=== PATIENT | male | born 1950 | race Caucasian/White ===

== ENCOUNTER → 2020-02-17 | Outpatient (CLI) | payer OTHER ==
[~2020-02-17] MED LIST: FLEXERIL10 MG PO; HYDROCODONE BIT1 T11 PO; KEFLEX500 M1 PO; LAMICTAL200 MG PO; LOMOTIL 0.025 M1 TA1 PO; MOTRIN600 MG PO; MOTRIN800 MG PO; NAPROSYN500 MG PO; TEGRETOL PO; TEGRETOL-XR 40400 MG PO; TEGRETOL-XR400 MG PO; TOPAMAX15 MG PO; TOPAMAX200 MG PO; TYLENOL500 MG PO; VICODIN 5/500 505 MG PO; ZOLOFT100 MG PO
== END | disposition home or self-care (01) ==
LOC: US 10:00
PROVIDERS: ATTEND Nurse Practitioner Family
DX: Z72.0 Tobacco use (principal)

== ENCOUNTER → 2020-08-16 | Outpatient (CLI) | payer OTHER | END | disposition home or self-care (01) | LOC: CT 08-09 11:00 | PROVIDERS: ATTEND Nurse Practitioner Family | DX: J43.9 Emphysema, unspecified (principal); J98.11 Atelectasis; J98.4 Other disorders of lung; R91.8 Other nonspecific abnormal finding of lung field ==

== ENCOUNTER → 2020-08-29 | Outpatient (CLI) | payer OTHER | END | disposition home or self-care (01) | LOC: CARD 07:24 | PROVIDERS: ATTEND Nurse Practitioner Family | DX: R01.1 Cardiac murmur, unspecified (principal) ==

== ENCOUNTER → 2020-12-19 | Outpatient (CLI) | payer OTHER ==
[~2020-12-19] MED LIST changes: +STIOLTO RESPIMAT4 GM NAS; -TOPAMAX15 MG PO; +VIT D PO
== END | disposition home or self-care (01) ==
LOC: CARD 01:37
PROVIDERS: ATTEND Internal Medicine Cardiovascular Disease
DX: I20.8 Other forms of angina pectoris (principal); R06.02 Shortness of breath

== ENCOUNTER → 2021-03-26 | Outpatient (CLI) | payer OTHER ==
[~2021-03-26] MED LIST changes: +LEVOFLOXACIN500 MG PO; +PREDNISONE10 MG PO
== END | disposition home or self-care (01) ==
LOC: LAB 08:37
PROVIDERS: ATTEND Nurse Practitioner Family
DX: G43.819 Other migraine, intractable, without status migrainosus (principal)

== ENCOUNTER 2021-04-10 11:14 | Inpatient (IN) | payer OTHER ==
[2021-04-10] VITALS (7 sets, daily range): BP systolic 127–155; BP diastolic 78–98
[~2021-04-10] VITALS: Ht 160 cm; Wt 45.0 kg
[~2021-04-10 11:14] MED LIST changes: -LEVOFLOXACIN500 MG PO; -PREDNISONE10 MG PO
[2021-04-10 11:49] LABS: BASO # 0.1 10*3/uL (0.0-0.1); BASO % 0.6 % (0.0-1.0); EOS # 0.1 10*3/uL (0.0-0.4); EOS % 0.6 % (1.0-4.0); HEMATOCRIT 40.6 % (42.0-52.0); LYMPH # 2.4 10*3/uL (1.3-4.4); LYMPH % 26.9 % (27.0-41.0); MEAN CORPUSCULAR HGB 31.2 pg (27.0-31.0); MEAN CORPUSCULAR HGB CONC 31.5 g/dl (33.0-37.0); MEAN PLATELET VOLUME 8.5 fl (9.6-12.3); MONO # 0.6 10*3/uL (0.1-1.0); MONO % 6.9 % (3.0-9.0); NEUT # 5.8 10*3/uL (2.3-7.9); NEUT % 64.6 % (47.0-73.0); PLATELET COUNT AUTOMATED 281 10*3/uL (130-400); RED CELL DISTRI WIDTH 13.2 % (0-14.5)
[2021-04-10 12:00] LABS: ACT PARTIAL THROMBO TIME 29.1 SECONDS (20.0-32.1)
[2021-04-10 12:06] LABS: ALBUMIN 3.1 gm/dl (3.1-4.5); ALKALINE PHOSPHATASE 103 U/L (45-117); BUN 15 mg/dl (7-24); CHLORIDE 106 mmol/L (98-107); CREATININE 0.69 mg/dL (0.70-1.30); POTASSIUM 3.9 mmol/L (3.5-5.1); SGOT/AST 14 IU/L (3-35); SGPT/ALT 24 U/L (12-78); SODIUM 140 mmol/L (136-145); TOTAL PROTEIN 7.2 gm/dL (6.4-8.2)
[2021-04-10 12:16] LABS: TROPONIN I < 0.015 ng/ml (<0.045)
[2021-04-10] MEDS ORDERED: TOPAMAX200 MG PO (21:09)
[2021-04-11] VITALS: BP 138/83
[2021-04-11 06:31] LABS: ACT PARTIAL THROMBO TIME 29.5 SECONDS (20.0-32.1)
[2021-04-11 06:42] LABS: BUN 11 mg/dl (7-24); CHLORIDE 104 mmol/L (98-107); CHOLESTEROL 155 mg/dL (<200); CREATININE 0.71 mg/dL (0.70-1.30); SGOT/AST 11 IU/L (3-35); SGPT/ALT 19 U/L (12-78); SODIUM 138 mmol/L (136-145); TRIGLYCERIDES 88 mg/dl (<150)
[2021-04-11 06:48] LABS: BASO % 0.1 % (0.0-1.0); HEMATOCRIT 39.1 % (42.0-52.0); LYMPH # 1.1 10*3/uL (1.3-4.4); LYMPH % 14.9 % (27.0-41.0); MEAN CORPUSCULAR HGB 31.1 pg (27.0-31.0); MEAN CORPUSCULAR HGB CONC 31.7 g/dl (33.0-37.0); MEAN PLATELET VOLUME 9.1 fl (9.6-12.3); MONO # 0.1 10*3/uL (0.1-1.0); MONO % 1.9 % (3.0-9.0); NEUT # 6.1 10*3/uL (2.3-7.9); NEUT % 82.7 % (47.0-73.0); PLATELET COUNT AUTOMATED 307 10*3/uL (130-400); RED BLOOD COUNT 3.99 10*6/uL (4.50-5.90); RED CELL DISTRI WIDTH 13.1 % (0-14.5); WHITE BLOOD COUNT 7.4 10*3/uL (4.8-10.8)
[2021-04-11 06:53] LABS: ALKALINE PHOSPHATASE 92 U/L (45-117); FREE T4 0.75 ng/dl (0.76-1.46); LDL CHOLESTEROL 69 mg/dL (9-159)
[2021-04-11 08:00] VITALS: BP 135/81
[2021-04-11] MEDS ORDERED: PREDNISONE10 MG PO (11:17)
[2021-04-11] MEDS ORDERED: LEVOFLOXACIN500 MG PO (11:17)
== END 2021-04-11 15:48 | disposition home or self-care (01) | DRG 206 ==
LOC: ED 11:14 → 4E 13:53 → EDHOLD 13:53 → 4E 20:03
PROVIDERS: Emergency Medicine; ADMIT Family Medicine; ATTEND Family Medicine
DX: M94.0 Chondrocostal junction syndrome [Tietze] (principal); E44.0 Moderate protein-calorie malnutrition; J44.1 Chronic obstructive pulmonary disease with (acute) exacerbation; R65.10 Systemic inflammatory response syndrome (SIRS) of non-infectious origin without acute organ dysfunction; Z68.1 Body mass index [BMI] 19.9 or less, adult; D53.9 Nutritional anemia, unspecified; F17.210 Nicotine dependence, cigarettes, uncomplicated; J45.909 Unspecified asthma, uncomplicated; G40.909 Epilepsy, unspecified, not intractable, without status epilepticus; Z91.040 Latex allergy status; Z79.899 Other long term (current) drug therapy